=== PATIENT | female | born 1980 | race Hispanic/Latino ===

== ENCOUNTER 2019-05-24 20:16 | Inpatient (IN) | payer BC ==
[~2019-05-24] VITALS: Ht 152.4 cm; Wt 74.4 kg
[~2019-05-24 20:16] MED LIST: PREN-64 PO
[2019-05-24] MEDS: LACTATED RINGERS 1000ML 1,000 ML IV PRN (20:55)
[2019-05-24 21:01] LABS: APPEARANCE,URINE Cloudy (CLEAR); BILIRUBIN,URINE Negative (NEGATIVE); COLOR,URINE Yellow (YELLOW); GLUCOSE, URINE (UA) Negative (NEGATIVE); KETONES,URINE 40 mg/dL (NEGATIVE); LEUKOCYTE ESTERASE ,URINE Trace (NEGATIVE); NITRATE,URINE Negative (NEGATIVE); OCCULT BLOOD,URINE Negative (NEGATIVE); PH,URINE 5.5 (5.0-8.0); PROTEIN,URINE POS 1+ mg/dL (NEGATIVE)
[2019-05-24 21:16] LABS: BACTERIA,URINE Few /HPF (None Seen); RBC,URINE None Seen /HPF (0-1)
[2019-05-24 21:50] VITALS: BP 118/69
[2019-05-24 22:16] LABS: HEMATOCRIT 33.8 % (36-48); MEAN CORPUSCULAR HEMOGLOBIN 22.4 pg (27.0-33.0); MEAN CORPUSCULAR HGB CONC 30.2 g/dL (32.0-36.0); MEAN CORPUSCULAR VOLUME 74.3 fL (79-99); PLATELET COUNT (AUTO) 241 K/uL (130-400); RED BLOOD CELL COUNT(AUTO) 4.55 MIL/uL (4.00-5.50); RED CELL DISTRIBUTION WIDTH 20.1 % (11.0-15.5); WHITE BLOOD COUNT (AUTO) 9.7 K/uL (4.8-10.8)
[2019-05-24 23:08] LABS: PLATELET MORPHOLOGY LARGE PLTS PRESENT
[2019-05-25] VITALS (9 sets, daily range): BP systolic 97–131; BP diastolic 54–70
[2019-05-25] MEDS ORDERED: ROPIVACAINE 0.2% 100ML VIAL 100 ML EP PRN
[2019-05-25] MEDS ORDERED: NALOXONE HCL 0.4 MG/1 ML ML IV PRN
[2019-05-25] MEDS ORDERED: EPHEDRINE SULFATE 50 MG/ML AMPULE IVP PRN
[2019-05-25] MEDS ORDERED: LACTATED RINGERS 500 ML 500 ML IV PRN
[2019-05-25] MEDS: LACTATED RINGERS 1000ML 1,000 ML IV PRN ×2 (01:26→05:02)
[2019-05-25] MEDS ORDERED: OXYTOCIN 10 USP UNITS/ML 20 UNIT in LACTATED RINGERS 1000ML 1,000 ML IV SCH (04:00)
[2019-05-25] MEDS ORDERED: OXYTOCIN-LR 20 UNITS/1000 ML 1,000 ML IV ONE (04:51)
[2019-05-25] MEDS ORDERED: DIPH,PERTUSS(ACELL),TET VAC/PF 0.5 ML VIAL IM PRN (09:15)
[2019-05-25] MEDS ORDERED: MEASLES/MUMPS/RUBELLA VACCINE, LIVE 0.5 ML/VIAL SQ PRN (09:15)
[2019-05-25] MEDS ORDERED: WITCH HAZEL 1 PAD TP PRN (09:15)
[2019-05-25] MEDS ORDERED: BENZOCAINE/LANOLIN/ALOE VERA 60 ML AEROSOL TP PRN (09:15)
[2019-05-25] MEDS ORDERED: ACETAMINOPHEN 325 MG TAB PO PRN (09:15)
[2019-05-25] MEDS ORDERED: ACETAMINOPHEN-CODEINE 300/30MG TAB PO PRN (09:15)
[2019-05-25] MEDS ORDERED: LANOLIN 30GM OINTMENT TP PRN (09:15)
[2019-05-25] MEDS ORDERED: OXYTOCIN-LR 20 UNITS/1000 ML 1,000 ML IV SCH (09:15)
[2019-05-25] MEDS: IBUPROFEN 600 MG TABLET PO PRN ×2 (10:51→16:55)
[2019-05-25] MEDS ORDERED: FLU VACC QS2019-20 36MOS UP/PF 60 MCG/0.5 ML ML IM ONE (17:00)
[2019-05-25] MEDS: DOCUSATE SODIUM 100 MG CAP PO SCH (20:58)
[2019-05-26 03:29] VITALS: BP 111/68
[2019-05-26] MEDS: IBUPROFEN 600 MG TABLET PO PRN (03:53)
[2019-05-26 05:19] LABS: HEMATOCRIT 29.6 % (36-48); MEAN CORPUSCULAR HEMOGLOBIN 22.2 pg (27.0-33.0); MEAN CORPUSCULAR HGB CONC 29.4 g/dL (32.0-36.0); MEAN CORPUSCULAR VOLUME 75.5 fL (79-99); PLATELET COUNT (AUTO) 190 K/uL (130-400); RED BLOOD CELL COUNT(AUTO) 3.92 MIL/uL (4.00-5.50); RED CELL DISTRIBUTION WIDTH 20.3 % (11.0-15.5); WHITE BLOOD COUNT (AUTO) 12.9 K/uL (4.8-10.8)
[2019-05-26 07:11] LABS: HEPATITIS Bs ANTIGEN SCREEN P Negative (Negative)
[2019-05-26 07:24] VITALS: BP 110/71
[2019-05-26] MEDS: DOCUSATE SODIUM 100 MG CAP PO SCH (09:03)
--- NOTE | 2019-05-26 11:05 | NUR ---
RHOGAM GIVEN IM TO LEFT GLUTEUS. NO BLOOD ON ASPIRATION. PATIENT TOLERATED INJECTION WELL.
[2019-05-26 11:26] VITALS: BP 106/64
--- NOTE | 2019-05-26 12:00 | NUR ---
DISCHARGE INSTRUCTIONS READ AND EXPLAINED TO PATIENT. NO RX WRITTEN FOR PATIENT. COVID 19 INFORMATION HANDED TO PATIENT. QUESTIONS INVITED AND ANSWERED. PATIENT VERBALIZED UNDERSTANDING ON ALL INFORMATION.
--- NOTE | 2019-05-26 12:10 | NUR ---
PATIENT LEFT UNIT VIA WHEELCHAIR WITH BABY IN ARMS. PERSONAL VEHICLE USED FOR TRANSPORTATION ACCOMPANIED BY SIGNIFICANT OTHER. BABY SECURE IN CARSEAT. NO COMPLAINTS OR CONCERNS ADDRESSED FROM PATIENT ON DISCHARGE.
== END 2019-05-26 12:10 | disposition home or self-care (01) | DRG 807 ==
LOC: LDH 20:16 → WSH 05-25 09:35
PROVIDERS: ADMIT Obstetrics & Gynecology; ATTEND Obstetrics & Gynecology
PROC: 10E0XZZ Delivery of Products of Conception, External Approach (ICD-10-PCS; principal; 2019-05-25)
PROC: 0KQM0ZZ Repair Perineum Muscle, Open Approach (ICD-10-PCS; 2019-05-25)
PROC: 3E0R3BZ Introduction of Anesthetic Agent into Spinal Canal, Percutaneous Approach (ICD-10-PCS; 2019-05-25)
PROC: 00HU33Z Insertion of Infusion Device into Spinal Canal, Percutaneous Approach (ICD-10-PCS; 2019-05-25)
PROC: 3E0234Z Introduction of Serum, Toxoid and Vaccine into Muscle, Percutaneous Approach (ICD-10-PCS; 2019-05-25)
PROC: 3E0134Z Introduction of Serum, Toxoid and Vaccine into Subcutaneous Tissue, Percutaneous Approach (ICD-10-PCS; 2019-05-25)
PROC: 3E02340 Introduction of Influenza Vaccine into Muscle, Percutaneous Approach (ICD-10-PCS; 2019-05-25)
PROC: 10907ZC Drainage of Amniotic Fluid, Therapeutic from Products of Conception, Via Natural or Artificial Opening (ICD-10-PCS; 2019-05-25)
DX: O24.420 Gestational diabetes mellitus in childbirth, diet controlled (principal); Z37.0 Single live birth; Z3A.39 39 weeks gestation of pregnancy; Z23 Encounter for immunization; O70.1 Second degree perineal laceration during delivery; O26.893 Other specified pregnancy related conditions, third trimester; Z67.41 Type O blood, Rh negative
CPT/HCPCS: 36415; 81001; 82947; 83033; 85027; 86592; 86850; 86900; 86901; 87340; 90715; A4314; A4606; G0378; J2590; J2791; J2795; J7120; Q2035

== ENCOUNTER 2023-08-02 20:49 | Emergency (ER) | payer BC ==
[~2023-08-02] VITALS: Ht 152.4 cm; Wt 69.9 kg
[2023-08-02 21:17] LABS: BASOPHILS # (AUTO) 0.04 K/uL (0.00-0.20); BASOPHILS % (AUTO) 0.3 % (0.0-5.0); EOSINOPHILS # (AUTO) 0.03 K/uL (0.00-0.70); EOSINOPHILS % (AUTO) 0.2 % (0.0-8.0); HEMATOCRIT 36.7 % (36-48); IMMATURE GRANULOCYTE ABSOLUTE 0.06 K/uL (0-1); LYMPHOCYTES # (AUTO) 1.8 K/uL (1.0-4.8); LYMPHOCYTES % (AUTO) 13.7 % (21.0-51.0); MEAN CORPUSCULAR HEMOGLOBIN 26.3 pg (27.0-33.0); MEAN CORPUSCULAR HGB CONC 32.7 g/dL (32.0-36.0); MEAN CORPUSCULAR VOLUME 80.3 fL (79-99); MONOCYTES # (AUTO) 0.6 K/uL (0.1-1.0); MONOCYTES % (AUTO) 4.5 % (3.0-13.0); NEUTROPHILS # (AUTO) 10.7 K/uL (1.8-7.7); NEUTROPHILS % (AUTO) 80.8 % (40.0-77.0); PLATELET COUNT (AUTO) 345 K/uL (130-400); RED BLOOD CELL COUNT(AUTO) 4.57 MIL/uL (4.00-5.50); RED CELL DISTRIBUTION WIDTH 13.2 % (11.0-15.5); WHITE BLOOD COUNT (AUTO) 13.3 K/uL (4.8-10.8)
[2023-08-02 21:18] LABS: ADD UA MICROSCOPIC YES; APPEARANCE,URINE CLEAR (CLEAR); BILIRUBIN,URINE NEGATIVE (NEGATIVE); COLOR,URINE LIGHT-YELLOW (YELLOW); GLUCOSE, URINE (UA) NEGATIVE (NEGATIVE); KETONES,URINE NEGATIVE (NEGATIVE); LEUKOCYTE ESTERASE ,URINE 25 Leu/uL (NEGATIVE); NITRATE,URINE NEGATIVE (NEGATIVE); OCCULT BLOOD,URINE LARGE (NEGATIVE); PH,URINE 5.5 (5.0-8.0); PROTEIN,URINE NEGATIVE (NEGATIVE); UROBILINOGEN,URINE 0.2 mg/dL (0.2-1.0)
[2023-08-02 21:19] LABS: BACTERIA,URINE RARE /HPF (None Seen); RBC,URINE 0-1 /HPF (0-1); SQUAMOUS EPITHELIAL CELL,UR RARE /HPF (0-2)
[2023-08-02 21:21] LABS: HCG,QUALITATIVE URINE NEGATIVE (NEGATIVE)
[2023-08-02 21:34] LABS: ALBUMIN 4.2 g/dL (3.5-5.0); BILIRUBIN,TOTAL 0.4 mg/dL (0.2-1.0); CREATININE 0.9 mg/dL (0.5-1.0); POTASSIUM 3.6 mmol/L (3.5-5.1); TOTAL PROTEIN, SERUM 7.4 g/dL (6.0-8.3)
[2023-08-02] MEDS: LIDOCAINE HCL 2% VISCOUS 15 ML UDCUP PO ONE (21:49)
[2023-08-02] MEDS: MAG/ALUM/SIMETH 30 ML UDCUP PO ONE (21:49)
[2023-08-02] MEDS: PANTOPRAZOLE 40 MG TAB DR PO ONE (21:54)
[2023-08-02 23:11] VITALS: BP 126/66; PULSE 65; RESP 16; O2SAT 99
== END 2023-08-03 00:07 | disposition home or self-care (01) ==
LOC: EDH 20:49
DX: K80.20 Calculus of gallbladder without cholecystitis without obstruction (principal); I10 Essential (primary) hypertension; K59.00 Constipation, unspecified; R10.12 Left upper quadrant pain
CPT/HCPCS: 36415; 74176; 80053; 81001; 81025; 83690; 85025